=== PATIENT | male | born 1970 | race Caucasian/White ===

== ENCOUNTER 2017-11-02 14:46 | Emergency (ER) | payer OTHER ==
[~2017-11-02] VITALS: Ht 175.3 cm; Wt 97.5 kg
--- NOTE | 2017-11-02 15:14 | PHYS DOC ---
Past History Past Medical History: No Pertinent History Past Surgical History: Appendectomy Smoking: Non-smoker Drug Use: None Adult General Chief Complaint Chief Complaint: SHORTNESS OF BREATH HPI HPI Patient is a year old 47 who presents with complaining of cough and shortness of breath for more than one week. Patient states he was seen by Dr. Maravilla office and treated with prednisone, inhaler, antibiotics every 6 hours and returned to work 2 days ago but felt weak and his became worse and then to his primary care physician office in because of abnormal EKG sent to ER. Patient denies chest pain, fever and chills, focal neuro deficit, sick contact. Review of Systems Review of Systems Constitutional: Denies fever or chills [] Eyes: Denies change in visual acuity, redness, or eye pain [] HENT: Denies nasal congestion or sore throat [] Respiratory: Reports cough and shortness of breath Cardiovascular: No additional information not addressed in HPI [] GI: Denies abdominal pain, nausea, vomiting, bloody stools or diarrhea [] : Denies dysuria or hematuria [] Musculoskeletal: Denies back pain or joint pain [] Integument: Denies rash or skin lesions [] Neurologic: Denies headache, focal weakness or sensory changes [] Endocrine: Denies polyuria or polydipsia [] All other systems were reviewed and found to be within normal limits, except as documented in this note. Physical Exam Physical Exam Constitutional: Well developed, well nourished, mild distress, non-toxic appearance. [] HENT: Normocephalic, atraumatic, oropharynx moist, no oral exudates, nose normal. [] Eyes: PERRLA, EOMI, conjunctiva normal, no discharge. [] Neck: Normal range of motion, no tenderness, supple, no stridor. [] Cardiovascular:Heart rate regular rhythm, no murmur [] Lungs & Thorax: Mild wheezing and rhonchi bilateral lung, no acute respiratory distress Abdomen: Bowel sounds normal, soft, no tenderness, no masses, no pulsatile masses. [] Skin: Warm, dry, no erythema, no rash. [] Back: No tenderness, no CVA tenderness. [] Extremities: No tenderness, no cyanosis, no clubbing, ROM intact, no edema. [] Neurologic: Alert and oriented X 3, normal motor function, normal sensory function, no focal deficits noted. [] Psychologic: Affect normal, judgement normal, mood normal. [] EKG EKG EKG interpreted by me. EKG at 1504 showed sinus tachycardia at rate of 104, left atrial abnormality, no acute ST and T wave abnormality[] Radiology/Procedures Radiology/Procedures [][address] [address] IMAGING REPORT Signed PATIENT: MARKOS ZAVALETA ACCOUNT: [id number] : 1970 LOCATION: ER AGE: 47 SEX: M EXAM STATUS: REG ER ORD. PHYSICIAN: SHELLY WELSH MD REASON: shortness of breath PROCEDURE: CHEST PA & LATERAL CHEST PA LATERAL dated 11/02/2017 3:30 PM. Comparison: None. Clinical Indication: PNEUMONIA, SHORTNESS OF BREATH. Findings: PA and lateral views obtained. Heart and mediastinal contours are within normal limits. Lungs are somewhat hyperinflated but otherwise clear. No consolidation or pleural effusion. No pneumothorax. Mild multilevel spondylosis. Impression: No acute radiographic abnormality. Hyperinflation suggestive of COPD. Electronically signed by: Juan Hines MD (11/02/2017 3:43 PM) [id number] DICTATED AND SIGNED BY: JUAN HINES MD DATE: 11/02/17 1543 CC: ULISSES MARAVILLA MD; SHELLY WELSH MD ~ Course & Med Decision Making Course & Med Decision Making Pertinent Labs and Imaging studies reviewed. (See chart for details) Evaluation of patient in ER showed 47-year-old male patient with complaining of increasing cough and shortness of breath after return to sports after diagnosis of pneumonia by primary care physician. Patient had rhonchi and wheezing and felt better with it, Solu-Medrol, IV fluids and Rocephin. Chest x-ray and labs was unremarkable. D-dimer was negative and cardiac enzymes was unremarkable. EKG did not show acute cardiac findings. Patient prefers to go home and one day off of work tomorrow that already was given by his primary care physician. Dragon Disclaimer Dragon Disclaimer This electronic medical record was generated, in whole or in part, using a voice recognition dictation system. Departure Departure: Impression: Primary Impression: Bronchitis Disposition: HOME, SELF-CARE (at 1700) Condition: IMPROVED Referrals: ULISSES MARAVILLA MD (PCP) Patient Instructions: Bronchitis Additional Instructions: Drink plenty of liquids Follow-up with your primary care physician in 3-5 days Return to ER if not getting better Scripts Hydrocodone/Chlorphen P-Stirex (Tussionex Pennkinetic Susp) 115 Ml Angelique.er.12h 5 ML PO BID, #60 MISC Prov: SHELLY WELSH MD 11/02/17 Azithromycin (ZITHROMAX) 250 Mg Tablet 1 PKG PO UD, #1 PKG Prov: SHELLY WELSH MD 11/02/17 Methylprednisolone (MEDROL) 4 Mg Tab.ds.pk 1 PKG PO UD, #1 PKG Prov: SHELLY WELSH MD 11/02/17 SHELLY WELSH MD Nov 02, 2017 15:14
[2017-11-02] MEDS ORDERED: IV NORMAL SALINE 1,000ML 1,000 ML IV ONE (15:30)
[2017-11-02 15:37] LABS: BASO # 0.1 x10^3/uL (0.0-0.2); BASO % 1 % (0-3); EOS % 0 % (0-3); HEMOGLOBIN 15.4 g/dL (13.0-17.5); LYMPH # 1.8 x10^3/uL (1.0-4.8); LYMPH % 21 % (24-48); MEAN CORPUSCULAR HEMOGLOBIN 33 pg (25-35); MEAN CORPUSCULAR HGB CONC 35 g/dL (31-37); MEAN CORPUSCULAR VOLUME 94 fL (79-100); MONO # 0.8 x10^3/uL (0.0-1.1); MONO % 9 % (0-9); NEUT # 5.8 x10^3uL (1.8-7.7); NEUT % 69 % (31-73); PLATELET COUNT 410 x10^3/uL (140-400); RED BLOOD COUNT 4.69 x10^6/uL (4.30-5.70); RED CELL DISTRIBUTION WIDTH 13.5 % (11.5-14.5); WHITE BLOOD COUNT 8.4 x10^3/uL (4.0-11.0)
--- NOTE | 2017-11-02 15:46 | RAD ---
CHEST PA LATERAL dated 11/02/2017 3:30 PM. Comparison: None. Clinical Indication: PNEUMONIA, SHORTNESS OF BREATH. Findings: PA and lateral views obtained. Heart and mediastinal contours are within normal limits. Lungs are somewhat hyperinflated but otherwise clear. No consolidation or pleural effusion. No pneumothorax. Mild multilevel spondylosis. Impression: No acute radiographic abnormality. Hyperinflation suggestive of COPD. Electronically signed by: Juan Hines MD (11/02/2017 3:43 PM) [facility]
[2017-11-02 16:02] LABS: ALBUMIN 3.8 g/dL (3.4-5.0); CALCIUM 9.3 mg/dL (8.5-10.1); CREATININE 1.8 mg/dL (0.7-1.3); GFR 40.5; MAGNESIUM 2.3 mg/dL (1.8-2.4); POTASSIUM 3.7 mmol/L (3.5-5.1); TOTAL BILIRUBIN 0.4 mg/dL (0.2-1.0); TOTAL PROTEIN 7.7 g/dL (6.4-8.2)
--- NOTE | 2017-11-02 16:07 | EKG ---
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
[2017-11-02] MEDS ORDERED: methylPREDNISolone SOD SUCC PF 125 MG/2 ML VIAL. IV ONE (16:15)
[2017-11-02] MEDS ORDERED: IPRATRPIUM/ALBUTEROL 0.5/2.5MG 3 ML NEBU. NEB ONE (16:15)
[2017-11-02] MEDS ORDERED: HYDR115S2 PO (16:59)
[2017-11-02] MEDS ORDERED: METH4TAB2 PO (16:59)
[2017-11-02] MEDS ORDERED: AZIT250T PO (16:59)
[2017-11-02] MEDS ORDERED: cefTRIAXone IV Push 1 GM VIAL. IVP ONE (17:00)
[2017-11-02 17:25] VITALS: BP 122/66
== END 2017-11-02 17:25 | disposition home or self-care (01) ==
LOC: ER 14:46
DX: J40 Bronchitis, not specified as acute or chronic (principal); R53.1 Weakness
CPT/HCPCS: 36415; 71046; 80053; 82553; 83605; 83690; 83735; 83880; 84484; 85025; 85379; 85610; 87040; 93005; 94640; 96374; 96375; 99285; J0696; J2930; J7620; J7030

== ENCOUNTER 2018-10-21 23:02 | Emergency (ER) | payer SELFPAY ==
[~2018-10-21 23:02] MED LIST: AZIT250T PO; HYDR115S2 PO; METH4TAB2 PO
[2018-10-21 23:04] VITALS: BP 132/84
--- NOTE | 2018-10-21 23:19 | ED.ADGEN ---
Past History Past Medical History: No Pertinent History Past Surgical History: Appendectomy Smoking: Non-smoker Alcohol Use: Occasionally Drug Use: None Adult General Chief Complaint Chief Complaint ".. I got over aggressive eating a pork chop... and it got stuck.. this has happen before.. my last dilation was 10 yrs. ago.. I got bad reflux.. and I take omeprazole.. I could not even swallow my spit.... but soon as I walked through the ED door... I felt it pass. ...."..."I don't want you to do anything now..." HPI HPI Patient is a 48 year old male who presents with of food bolus, pork chop meat that became lodged in his esophagus. Patient advised has had previous history of esophagus dysphagia and food boluses. Patient states he has GERD and takes omeprazole. Patient's last EGD was approximately 10 years ago when he had a large bolus and required esophageal dilation. Patient's had esophageal dilations �2. Patient currently states that he felt his pass the moment he came through the emergency room door. Patient currently tolerating food and water without problems. Patient demanding discharge. Declines labs, or x-rays. Patient states she will follow-up with a GI specialist. Review of Systems Review of Systems Constitutional: Denies fever or chills [] Eyes: Denies change in visual acuity, redness, or eye pain [] HENT: Denies nasal congestion or sore throat [] Respiratory: Denies cough or shortness of breath [] Cardiovascular: No additional information not addressed in HPI [] GI: Denies abdominal pain, nausea, vomiting, bloody stools or diarrhea []the patient complaints of esophageal food bolus obstruction. History of GERD : Denies dysuria or hematuria [] Musculoskeletal: Denies back pain or joint pain [] Integument: Denies rash or skin lesions [] Neurologic: Denies headache, focal weakness or sensory changes [] Endocrine: Denies polyuria or polydipsia [] All other systems were reviewed and found to be within normal limits, except as documented in this note. Family History Family History Noncontributory Current Medications Current Medications See nursing for home meds Allergies Allergies Allergies Coded Allergies Type Severity Reaction Last Updated Verified No Known Drug Allergies 11/02/17 No Physical Exam Physical Exam Constitutional: Was in acute distress, non-toxic appearance. [] HENT: Normocephalic, atraumatic, bilateral external ears normal, oropharynx moist, no oral exudates, nose normal. [] Eyes: PERRLA, EOMI, conjunctiva normal, no discharge. [] Neck: Normal range of motion, no tenderness, supple, no stridor. [] Cardiovascular:Heart rate regular rhythm, no murmur [] Lungs & Thorax: Bilateral breath sounds equal apex auscultation [] Abdomen: Bowel sounds normal, soft, no tenderness, no masses, no pulsatile masses. [] Old surgery scar. Skin: Warm, dry, no erythema, no rash. [] Back: No tenderness, no CVA tenderness. [] Extremities: No tenderness, no cyanosis, no clubbing, ROM intact, no edema. [] Old surgery scars on ankles. Loss of hair on lower limbs. Neurologic: Alert and oriented X 3, normal motor function, normal sensory function, no focal deficits noted. [] Psychologic: Affect anxious, judgement normal, mood normal. [] Current Patient Data Lab Results Refusing labs EKG EKG Refusing EKG[] Radiology/Procedures Radiology/Procedures Refusing x-rays[] Course & Med Decision Making Course & Med Decision Making Pertinent Labs and Imaging studies reviewed. (See chart for details) Patient now demanding discharge. Advised us the pork chop bolus has passed. Refusing labs and further workup. Patient able to drink water. Patient able to swallow crackers. Patient encouraged to follow-up with GI and primary. Patient advised other pathology can mimic a bolus, PR, etc. Pt. insisted on discharge [] Final Impression Final Impression 1. Esophageal food bolus[] 2. History of GERD 3. History of esophageal strictures- requiring dilation �2 Dragon Disclaimer Dragon Disclaimer This electronic medical record was generated, in whole or in part, using a voice recognition dictation system. Dragon Disclaimer This chart was dictated in whole or in part using Voice Recognition software in a busy, high-work load, and often noisy Emergency Department environment. It may contain unintended and wholly unrecognized errors or omissions. Dragon Disclaimer This chart was dictated in whole or in part using Voice Recognition software in a busy, high-work load, and often noisy Emergency Department environment. It may contain unintended and wholly unrecognized errors or omissions. GRATH NAGY MD Oct 21, 2018 23:19
== END 2018-10-21 23:28 | disposition home or self-care (01) ==
LOC: ER 23:02
DX: K22.2 Esophageal obstruction (principal); K21.9 Gastro-esophageal reflux disease without esophagitis
CPT/HCPCS: 99281

== ENCOUNTER 2019-03-06 10:21 | Emergency (ER) | payer BC ==
[~2019-03-06] VITALS: Ht 175.3 cm; Wt 101.6 kg
[2019-03-06 10:21] VITALS: BP 123/83
--- NOTE | 2019-03-06 11:00 | PHYS DOC ---
Past History Past Medical History: GERD Past Surgical History: Appendectomy Smoking: Non-smoker Alcohol Use: None Drug Use: None Adult General Chief Complaint Chief Complaint: Influenza HPI HPI Patient is a 48-year-old male who presents after being told to come to the emergency room by medic clinic when they diagnosed him with influenza A. Patient states that he was told that his heart rate was fast and his blood pressure was elevated so they said that he needed to come to the emergency room. Patient noted to be hemodynamically stable here in the emergency room.[] Review of Systems Review of Systems Constitutional: Positive fever and chills [] Respiratory: Positive cough without shortness of breath [] Cardiovascular: No additional information not addressed in HPI [] Musculoskeletal: Positive body aches/pain [] Integument: Denies rash or skin lesions [] Neurologic: Denies headache, focal weakness or sensory changes [] Allergies Allergies Allergies Coded Allergies Type Severity Reaction Last Updated Verified No Known Drug Allergies 11/02/17 No Physical Exam Physical Exam Constitutional: Well developed, well nourished, no acute distress, non-toxic appearance. [] Cardiovascular: Mildly tachycardic rate with regular rhythm[] Lungs & Thorax: Bilateral breath sounds clear to auscultation [] Skin: Warm, dry, no erythema, no rash. [] Extremities: No tenderness, no cyanosis, no clubbing, ROM intact, no edema. [] Neurologic: Alert and oriented X 3, no focal deficits noted. [] EKG EKG [] Radiology/Procedures Radiology/Procedures [] Course & Med Decision Making Course & Med Decision Making Pertinent Labs and Imaging studies reviewed. (See chart for details) Discussed treatment options with patient and indicated that patient would have to speak with registration regarding payment before treatment could be rendered. Patient indicated that he did not want to undergo further payment. I did indicate the patient was hemodynamically stable and that he did not need to necessarily be seen in the emergency room. Dragon Disclaimer Dragon Disclaimer This electronic medical record was generated, in whole or in part, using a voice recognition dictation system. Departure Departure: Impression: Primary Impression: Influenza Disposition: 07 AGAINST MEDICAL ADVICE (patient had medical screening examination performed and elected not to stay and be treated.) Condition: STABLE Referrals: ULISSES MARAVILLA MD (PCP) BREANA OATES Jr. DO Mar 06, 2019 11:00
== END 2019-03-06 10:40 | disposition left against medical advice (07) ==
LOC: ER 10:21
DX: J11.1 Influenza due to unidentified influenza virus with other respiratory manifestations (principal); K21.9 Gastro-esophageal reflux disease without esophagitis
CPT/HCPCS: 99281